=== PATIENT | male | born 1945 | race Caucasian/White ===

== ENCOUNTER 2024-03-25 16:40 | Emergency (ER) | payer MEDICARE, SELFPAY ==
[2024-03-25 16:43] VITALS: BP 140/80; BMI 23.5
--- NOTE | 2024-03-25 16:55 | ED.GENMED ---
History of Present Illness
General
Chief Complaint: Vascular Access Problem
Source: patient
Exam Limitations: none
Time Seen by Provider: 03/25/24 16:43
History of Present Illness
History of Present Illness:
79-year-old male presents for evaluation from home via EMS after blood was noted coming from his dialysis fistula. He had a full session of dialysis today and he noted some bleeding afterwards. They put a dressing on. He continued to bleed at
home and he called EMS. He is not anticoagulated. He has no other complaints
Past History
Past History
ED Past Medical History: HTN, Hypercholesterolemia, Renal failure and Psychiatric
ED Past Surgical History: Cardiac (Pacemaker)
Social History
Tobacco: Non-smoker
Alcohol: Other
Personal:
Living: with family
Phy Exam
Physical Exam
Physical Exam:
General: Well-appearing male no acute respiratory distress HEENT: Normocephalic atraumatic
Extremities: Fistula noted right upper extremity with palpable thrill. The dressing was removed. The dressing was initially with a mild amount of blood in the dressing however upon dressing removal there was no active bleeding. This was observed
for extended period time without any dressing and there was no further bleeding.
Course
Vital Signs
Initial and Last Documented VS:
Initial Vital Signs
Temp Pulse Resp BP Pulse Ox
97.8 F 76 16 140/80 97
03/25/24 16:43 03/25/24 16:43 03/25/24 16:43 03/25/24 16:43 03/25/24 16:43
Last Documented Vital Signs
Temp Pulse Resp BP Pulse Ox
97.8 F 76 16 140/80 97
03/25/24 16:43 03/25/24 16:43 03/25/24 16:43 03/25/24 16:43 03/25/24 16:43
MDM/Problems Addressed
Differential Diagnosis Includes:
Bleeding from dialysis fistula which now seems to have stopped. Another pressure dressing was applied with 4 x 4's and a gauze wrap. Will continue to observe for any further bleeding
*Critical Care Note
Total Time (30-74mins, 75-104mins- exclusive of procedures): Not Applicable
Update Note
Update Note:
Patient reexamined. No further bleeding from fistula. Dressing remains dry. Stable for discharge
ED Attending Note
-
Portions of this chart may have been created with voice recognition software.� Occasional wrong word or��sound alike� substitutions may have occurred due to the inherent limitations of voice recognition software.
Discharge Plan
Departure
Patient Disposition: Home (Routine Discharge)
Date of Disposition: 03/25/24
Time of Disposition: 17:28
Patient with high blood pressure during this ER visit?: No
Discharge Problem:
Hemorrhage from arteriovenous dialysis graft
Prescriptions:
No Action
famotidine [Pepcid] 20 mg Tablet
20 mg PO HS
pantoprazole [Protonix] 40 mg Tablet,Delayed Release (Dr/Ec)
40 mg PO DAILY
Rx Instructions:
9am
mirtazapine [Remeron] 15 mg Tablet
15 mg PO HS
aripiprazole [Abilify] 15 mg Tablet
15 mg PO DAILY
Rx Instructions:
4pm
sevelamer carbonate [Renvela] 800 mg Tablet
800 mg PO BID
Patient Comments:
Breakfast and Dinner
Fish Oil
2 cap PO DAILY
Rx Instructions:
4pm
Parsabiv
1 dose IV QMWF
Patient Comments:
Given during dialysis (MWF)
atorvastatin 10 mg Tablet
10 mg PO Q OTHER DAY
Rx Instructions:
Pt one 10 mg tablet, PO takes Monday, Monday, Monday and Monday each week
sertraline [Zoloft] 100 mg Tablet
100 mg PO DAILY Qty: 0 0RF
Rx Instructions:
4pm
Referrals:
UNKNOWN - PT DOES,NOT KNOW [Unknown Provider] -
Activity Restrictions/Additional Instructions:
Return here if needed otherwise follow-up with your treating physician
Interventions
Interventions:
*Risk Screen - Suicide Last Done: 03/25/24 16:47
*Neglect/Abuse Screening Last Done: 03/25/24 16:47
Discharge Date and Time
Print Language: SPANISH
== END 2024-03-25 17:41 | disposition home or self-care (01) ==
LOC: EMR 16:40
PROVIDERS: EMERGENCY PHYSICIAN Emergency Medicine; FAMILY PHYSICIAN Family Medicine
DX: T82.838A Hemorrhage due to vascular prosthetic devices, implants and grafts, initial encounter (principal); X58.XXXA Exposure to other specified factors, initial encounter; I12.9 Hypertensive chronic kidney disease with stage 1 through stage 4 chronic kidney disease, or unspecified chronic kidney disease; N18.9 Chronic kidney disease, unspecified; E78.00 Pure hypercholesterolemia, unspecified; Z95.0 Presence of cardiac pacemaker; Z99.2 Dependence on renal dialysis
CPT/HCPCS: 99282